=== PATIENT | female | born 1935 | race Hispanic/Latino ===

== ENCOUNTER 2021-02-13 18:46 | Emergency (ER) | payer MEDICARE ==
[~2021-02-13] VITALS: Ht 154.9 cm; Wt 68.5 kg
[~2021-02-13 18:46] MED LIST: ATOR10 PO; CIPR-278 PO; CLOP75TA32 PO; GLIM4TAB36 PO; LEVO25TA54 PO; LOSA100T58 PO; METF-446 PO; METR-172 PO; VIT1TABL75 PO
[2021-02-13 18:51] VITALS: BP 162/76
[2021-02-13] MEDS ORDERED: ACETAMINOPHEN 500 MG TABLET PO ONE (19:00)
[2021-02-13 19:27] LABS: BASOPHILS % (AUTO) 0.5 % (0.0-5.0); EOSINOPHILS % (AUTO) 2.9 % (0.0-8.0); HEMATOCRIT 31.7 % (36-48); LYMPHOCYTES % (AUTO) 31.3 % (21.0-51.0); MEAN CORPUSCULAR HEMOGLOBIN 27.6 pg (27.0-33.0); MEAN CORPUSCULAR HGB CONC 32.2 g/dL (32.0-36.0); MEAN CORPUSCULAR VOLUME 85.7 fL (79-99); MONOCYTES % (AUTO) 10.2 % (3.0-13.0); NEUTROPHILS % (AUTO) 54.9 % (40.0-77.0); PLATELET COUNT (AUTO) 310 K/uL (130-400); RED CELL DISTRIBUTION WIDTH 14.1 % (11.0-15.5); WHITE BLOOD COUNT (AUTO) 9.8 K/uL (4.8-10.8)
[2021-02-13 19:28] VITALS: BP 151/72
[2021-02-13] MEDS ORDERED: FERR325T29 PO (19:36)
[2021-02-13] MEDS ORDERED: SITA100T12 PO (19:36)
[2021-02-13] MEDS ORDERED: CHOL500050 PO (19:36)
[2021-02-13] MEDS ORDERED: FOLI0.8T22 PO (19:36)
[2021-02-13] MEDS ORDERED: AMLO-257 PO (19:37)
[2021-02-13 19:44] LABS: CREATININE 1.2 mg/dL (0.5-1.5); INR 1.09 (0.85-1.15); POTASSIUM 4.2 mmol/L (3.5-5.1); PROTHROMBIN TIME 11.8 SEC (9.6-11.6)
[2021-02-13 19:54] LABS: ALBUMIN 3.6 g/dL (3.5-5.0); BILIRUBIN,TOTAL 0.3 mg/dL (0.2-1.0); TOTAL PROTEIN, SERUM 7.6 g/dL (6.0-8.3)
[2021-02-13 19:57] VITALS: BP 152/73
[2021-02-13] MEDS ORDERED: ACET-2247 PO (20:03)
== END 2021-02-13 20:19 | disposition home or self-care (01) ==
LOC: EDH 18:46
DX: S00.83XA Contusion of other part of head, initial encounter (principal); S80.02XA Contusion of left knee, initial encounter; S80.01XA Contusion of right knee, initial encounter; W01.0XXA Fall on same level from slipping, tripping and stumbling without subsequent striking against object, initial encounter; Y93.01 Activity, walking, marching and hiking; Y92.480 Sidewalk as the place of occurrence of the external cause; Y99.8 Other external cause status
CPT/HCPCS: 36415; 70450; 70486; 71045; 72125; 73562; 80053; 84484; 85025; 85610; 85730; 93005

== ENCOUNTER 2022-05-08 16:32 | Observation (INO) | payer MEDICARE ==
[~2022-05-08] VITALS: Ht 152.4 cm; Wt 60.1 kg
[~2022-05-08 16:32] MED LIST changes: +ACET-2247 PO; +AMLO-257 PO; +CHOL500050 PO; -CIPR-278 PO; +FERR325T29 PO; +FOLI0.8T22 PO; -METR-172 PO; +SITA100T12 PO
[2022-05-08 20:19] LABS: BASOPHILS % (AUTO) 0.7 % (0.0-5.0); EOSINOPHILS % (AUTO) 1.9 % (0.0-8.0); HEMATOCRIT 32.5 % (36-48); LYMPHOCYTES % (AUTO) 27.3 % (21.0-51.0); MEAN CORPUSCULAR HEMOGLOBIN 27.7 pg (27.0-33.0); MEAN CORPUSCULAR HGB CONC 32.9 g/dL (32.0-36.0); MEAN CORPUSCULAR VOLUME 84.2 fL (79-99); MONOCYTES % (AUTO) 7.9 % (3.0-13.0); NEUTROPHILS % (AUTO) 61.8 % (40.0-77.0); PLATELET COUNT (AUTO) 327 K/uL (130-400); RED BLOOD CELL COUNT(AUTO) 3.86 MIL/uL (4.00-5.50); WHITE BLOOD COUNT (AUTO) 10.2 K/uL (4.8-10.8)
[2022-05-08 20:29] LABS: CREATININE 1.2 mg/dL (0.5-1.5); POTASSIUM 4.4 mmol/L (3.5-5.1)
[2022-05-08 20:34] LABS: ALBUMIN 3.9 g/dL (3.5-5.0); TOTAL PROTEIN, SERUM 8.1 g/dL (6.0-8.3)
[2022-05-08] MEDS ORDERED: 0.9%NACL 1000ML 1,000 ML IV SCH (21:00)
[2022-05-08] MEDS ORDERED: VITAMIN-C (21:08)
[2022-05-08] MEDS ORDERED: INSU100I3 SQ (21:08)
[2022-05-08] MEDS ORDERED: FEXO180T94 PO (21:08)
[2022-05-08] MEDS ORDERED: LEVO25CA4 PO (21:08)
[2022-05-08 21:23] LABS: APPEARANCE,URINE CLEAR (CLEAR); BILIRUBIN,URINE NEGATIVE (NEGATIVE); COLOR,URINE COLORLESS (YELLOW); GLUCOSE, URINE (UA) NEGATIVE (NEGATIVE); KETONES,URINE NEGATIVE (NEGATIVE); LEUKOCYTE ESTERASE ,URINE 250 Leu/uL (NEGATIVE); NITRATE,URINE NEGATIVE (NEGATIVE); OCCULT BLOOD,URINE NEGATIVE (NEGATIVE); PROTEIN,URINE NEGATIVE (NEGATIVE); UROBILINOGEN,URINE 0.2 mg/dL (0.2-1.0)
[2022-05-08 21:25] LABS: BACTERIA,URINE RARE /HPF (None Seen); MUCUS,URINE RARE LPF (None Seen); RBC,URINE 0-1 /HPF (0-1)
[2022-05-08] MEDS: ACETAMINOPHEN 325 MG TAB PO PRN (23:23)
[2022-05-09 00:43] VITALS: BP 160/61
[2022-05-09 03:30] VITALS: BP 125/61
[2022-05-09] MEDS: ACETAMINOPHEN 325 MG TAB PO PRN (06:09)
[2022-05-09 08:00] VITALS: BP 138/60
[2022-05-09] MEDS ORDERED: GADOTERATE MEGLUMINE 5 MMOL/10 ML VIAL IV ONE (10:31)
[2022-05-09 12:00] VITALS: BP 136/57
== END 2022-05-09 16:30 | disposition home or self-care (01) ==
LOC: EDH 16:32 → EDHIP 20:20 → 3DH 05-09 00:23
PROVIDERS: ADMIT Internal Medicine Hematology & Oncology; ATTEND Internal Medicine Hematology & Oncology
DX: R51.9 Headache, unspecified (principal); E86.0 Dehydration; Z20.822 Contact with and (suspected) exposure to COVID-19; E03.9 Hypothyroidism, unspecified; Z79.899 Other long term (current) drug therapy
CPT/HCPCS: 96360; 96361 ×2; 99284; 80053; 85025; 87077; 87088; 87186; 87804 ×2; 82948; 81001; 36415; 87635; 70553; G0378 ×20; J7030; A9575; G0379

== ENCOUNTER 2024-06-30 22:03 | Emergency (ER) | payer MEDICARE ==
[~2024-06-30] VITALS: Ht 154.9 cm; Wt 66.2 kg
[~2024-06-30 22:03] MED LIST changes: +FEXO180T94 PO; +INSU100I3 SQ; +LEVO25CA4 PO; -LOSA100T58 PO; +LOSA100T59 PO; +VITAMIN-C
--- NOTE | 2024-06-30 22:32 | EKG ---
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
--- NOTE | 2024-06-30 22:50 | ERN ---
ED Note History of Present Illness Stated Complaint: HIGH SUGAR LEVELS Chief Complaint: Hyperglycemia Time Seen by MD: 22:10 Dictation: This is an 88-year-old female who presented to the emergency room stating that her sugars have been running high. She also started feeling numbness and tingling in her lower extremities. Hence daughter at bedside. Apparently patient received Solu-Medrol 125 mg for chronic hip pain which was worsening around 11:30 a.m.. She is very diligent with her medications. No history of any fevers chills rigors no burning micturition dysuria hematuria no cough sputum or hemoptysis. patient is only taking Tylenol at this time PRN for pain. As she is afraid of any worsening renal function. She sees Dr. Sánchez for CKD. The daughter indicated that her sugar in the evening was over 500 and after she took her insulin dosing it was still around 455 Temperature 97.7 pulse 104 respirations 20 blood pressure 179/90 with a pulse oximetry of 94%. Chronic medical problems include diabetes mellitus, hypertension, hypercholesterolemia, osteoarthritis and hypothyroidism Allergies: Coded Allergies: ceftriaxone (Unverified Allergy, Intermediate, HIVES, 07/13/17) No Known Drug Allergies (Verified Allergy, Unknown, 07/13/17) Home Meds Active Scripts Tramadol Hcl (Tramadol HCl) 50 Mg Tablet, 25 MG PO QID for pain, #16 TAB 0 Refills Prov:CATE YADAV MD 07/01/24 Acetaminophen (Tylenol) 325 Mg Tablet, 650 MG PO QID, #50 TAB Prov:FRANCES ASHLEY 02/13/21 Reported Medications Insulin Aspart (Novolog Flexpen) 100 Unit/1 Ml Insuln.pen, 8 UNIT SQ AM, SYRINGE 05/08/22 Levothyroxine Sodium (Levothyroxine) 25 Mcg Capsule, 25 MCG PO DAILY, CAP 05/08/22 [Vitamin-C] No Conflict Check, 500 MG DAILY 05/08/22 Fexofenadine HCl (Shelia Allergy) 180 Mg Tablet, 180 MG PO DAILY for 30 Days, T AB 05/08/22 Amlodipine Besylate (Amlodipine Besylate) 5 Mg Tablet, 5 MG PO DAILY, TAB 02/13/21 Cholecalciferol (Vitamin D3) (Vitamin D3) 1,250 Mcg Capsule, 1250 MCG PO DAILY, CAP 02/13/21 Sitagliptin Phosphate (Januvia) 100 Mg Tablet, 100 MG PO DAILY, TAB 02/13/21 Folic Acid/Vitamin B Comp W-C (Norah-Bakari Tablet) 0.8 Mg Tablet, 0.8 MG PO DAILY, TAB 02/13/21 Ferrous Sulfate (Ferosul) 325 Mg Tablet, 325 MG PO DAILY, TAB 02/13/21 Vit B Cmplx 3/FA/Vit C/Biotin (Vol-Care Rx Tablet) 1 Each Tablet, 1 EACH PO DAILY, TAB 07/13/17 Clopidogrel Bisulfate (Clopidogrel) 75 Mg Tablet, 75 MG PO DAILY, TAB 07/13/17 Losartan Potassium (Losartan Potassium) 100 Mg Tablet, 100 MG PO DAILY, TAB 07/13/17 Metformin HCl (Metformin HCl) 1,000 Mg Tablet, 1000 MG PO BID, TAB 07/13/17 Glimepiride (Glimepiride) 4 Mg Tablet, 4 MG PO BID, TAB 07/13/17 Atorvastatin Calcium (LIPITOR) 20 Mg Tab, 40 MG PO HS, TAB 07/13/17 Levothyroxine Sodium (Levothyroxine Sodium) 25 Mcg Tablet, 25 MCG PO ACBKFST, TAB 07/13/17 Past Medical History Past Medical History: Arthritis, Diabetes-Type II, High Cholesterol, Hypertension, Hypothyroid Surgical History: Hysterectomy Family History: Negative Social History: Negative History: Not Applicable RN Note Reviewed/Agreed w/PFSH: Yes Review of System Dictation Constitutional: Negative for fever,chills, and weight loss Eyes: Negative for injury, pain,redness, and discharge ENT: Negative for injury,pain or swelling Cardiovascular: Negative for chest pain, palpitations, and edema Respiratory: Negative for shortness of breath, cough, and wheezing, Abdomen/GI: Negative for abdominal pain, nausea, vomiting, diarrhea, and constipation Back: Negative for injury and pain : Negative for injury, bleeding and discharge MS/Extremity: Negative for injury and deformity chronic left hip pain Skin: Negative for rash, and discoloration Neuro: Negative for headache, weakness, numbness, tingling, and seizure Psych: Negative for suicide ideation, homicidal ideation, and hallucinations Initial Vital Sign VS Vital Signs Date Time Temp Pulse Resp B/P (MAP) Pulse Ox O2 Delivery O2 Flow Rate FiO2 06/30/24 22:30 97.7 104 20 179/90 94 Room Air 06/30/24 23:30 0 21 Physical Exam Dictation General: awake, alert, NAD Head/Face: Normocephalic, atraumatic Eyes: PERRL, EOMI, vision at baseline ENT: oral cavity clear, TMs clear, no signs of infection Neck: Trachea midline, supple, no nuchal rigidity Cardiovascular: RRR, normal S1/S2, No MRGs, no JVD Respiratory: CTAB, no respiratory distress, No rales or wheezes Abdomen: Soft, non-tender, non-distended, normal bowel sounds, no guarding or rebound. Skin: Warm, dry, normal turgor, no rash MS/Extremity: Pulses equal, no cyanosis, neurovascular intact, FROM Neuro: COAx4, GCS 15, strength 5/5, CN 2-12 intact, normal cerebellar exam, normal gait, Psych: Normal behavior, mood, and affect normal Extremities-trace edema without any palpable cords, Homans sign is negative Results (Laboratory/Radiology) Laboratory/Radiology Laboratory Tests Test 06/30/24 22:35 06/30/24 22:53 07/01/24 00:14 07/01/24 00:23 Whole Blood Glucose 402 MG/DL (70-110) *H 272 MG/DL (70-110) H Bedside Glucose Comment Notified Nurse White Blood Count 9.1 K/uL (4.8-10.8) Red Blood Count 3.74 MIL/uL (4.00-5.50) L Hemoglobin 10.3 g/dL (12.0-16.0) L Hematocrit 32.2 % (36-48) L Mean Corpuscular Volume 86.1 fL (79-99) Mean Corpuscular Hemoglobin 27.5 pg (27.0-33.0) Mean Corpuscular Hemoglobin Concent 32.0 g/dL (32.0-36.0) Red Cell Distribution Width 14.1 % (11.0-15.5) Platelet Count 315 K/uL (130-400) Mean Platelet Volume 10.4 fL (7.5-10.5) Immature Granulocyte % (Auto) 0.6 % (0-1) Neutrophils (%) (Auto) 87.4 % (40.0-77.0) H Lymphocytes (%) (Auto) 11.3 % (21.0-51.0) L Monocytes (%) (Auto) 0.6 % (3.0-13.0) L Eosinophils (%) (Auto) 0.0 % (0.0-8.0) Basophils (%) (Auto) 0.1 % (0.0-5.0) Neutrophils # (Auto) 7.9 K/uL (1.8-7.7) H Lymphocytes # (Auto) 1.0 K/uL (1.0-4.8) Monocytes # (Auto) 0.1 K/uL (0.1-1.0) Eosinophils # (Auto) 0.00 K/uL (0.00-0.70) Basophils # (Auto) 0.01 K/uL (0.00-0.20) Absolute Immature Granulocyte (auto 0.05 K/uL (0-1) Nucleated Red Blood Cells 0.0 % (0.0-0.19) Sodium Level 134 mmol/L (136-145) L Potassium Level 4.3 mmol/L (3.5-5.1) Chloride Level 99 mmol/L (101-111) L Carbon Dioxide Level 21 mmol/L (21-32) Blood Urea Nitrogen 23 mg/dL (7-18) H Creatinine 1.4 mg/dL (0.5-1.0) H Glomerular Filtration Rate Calc 36 mL/min (>90) Random Glucose 403 mg/dL (70-105) *H Total Calcium 9.0 mg/dL (8.5-10.1) Urine Color COLORLESS (YELLOW) Urine Appearance CLEAR (CLEAR) Urine pH 6.0 (5.0-8.0) Urine Specific [place] 1.010 (1.001-1.031) Urine Protein NEGATIVE mg/dL (NEGATIVE) Urine Glucose (UA) >=1000 mg/dL (NEGATIVE) H Urine Ketones NEGATIVE mg/dL (NEGATIVE) Urine Occult Blood NEGATIVE (NEGATIVE) Urine Nitrate NEGATIVE (NEGATIVE) Urine Bilirubin NEGATIVE mg/dL (NEGATIVE) Urine Urobilinogen 0.2 mg/dL (0.2-1.0) Urine Leukocyte Esterase NEGATIVE Chris/uL Urine RBC 0-1 /HPF (0-1) Urine WBC 2-5 /HPF (0-1) H Urine Bacteria RARE /HPF (None Seen) Labs Reviewed?: Yes ED Course ED Course Orders Procedure Category Date Status Time Cbc With Differential LAB 06/30/24 Complete 22:10 Basic Metabolic Panel LAB 06/30/24 Complete 22:10 12 Lead Ekg Tracing- EKG 06/30/24 Complete Technical 22:10 0.9%Nacl 1000ml (Ns PHA 06/30/24 Complete 1000ml) 23:30 Insulin Regular, PHA 07/01/24 Complete Human 3ml (Humulin R 00:00 Tramadol PHA 07/01/24 Complete Hcl/Acetaminophen 00:30 Random Accucheck At CPOE 07/01/24 Transmitted Bedside 00:03 Urinalysis LAB 07/01/24 Complete W/Microscopic 00:14 Current Medications Medications (Trade) Dose Ordered Sig/Iam Route PRN Reason Start Time Stop Time Status Last Admin Dose Admin Insulin Human Regular (humuLIN R 100 UNIT/ML 3ML) 15 unit ONCE ONCE IV 07/01/24 00:00 07/01/24 00:01 DC 06/30/24 23:45 Sodium Chloride 1,000 ml @ 0 mls/hr ONCE ONCE IV 06/30/24 23:30 06/30/24 23:31 DC 06/30/24 23:18 Tramadol/ Acetaminophen (UltraCET) 1 tab ONCE ONCE PO 07/01/24 00:30 07/01/24 00:31 DC 07/01/24 00:21 Vital Signs Date Time Temp Pulse Resp B/P (MAP) Pulse Ox O2 Delivery O2 Flow Rate FiO2 07/01/24 01:00 97.7 84 18 136/71 94 Room Air* 0 21 07/01/24 00:00 97.7 84 18 144/75 94 Room Air* 0 21 06/30/24 23:30 84 18 148/77 97 Room Air* 0 21 06/30/24 22:30 97.7 104 20 179/90 94 Room Air We will perform diagnostic labs, advanced imaging and administer medications according to the patient's complaint. Once the results are available, will review and personally interpreted the labs to rule out any acute life- threatening emergency the trach require immediate intervention and treatment. I will then re-evaluate the patient after treatment and diagnostic exams have return to determine whether the patient requires any further testing, can safely be discharged home or need further admission to hospital for additional treatment and evaluation. Labs reviewed CBC showed a white count of 9.1 hemoglobin 10.3. BNP 7 showed a sodium of 134 BUN and creatinine are 23 and 1.4. IV fluids and optimize the glycemic control. 12:07 a.m. I had a long discussion with patient and daughter that her hyper glycemia may have been triggered by IM steroids. There is no fever leukocytosis at this time Patient is insisting on going home and sleeping in her bed as she has activities planned with the grandchildren. I recommended that for severe hip pain she could try an extremely low-dose tramadol for pain relief and patient is willing to try DC home to follow up with her primary care physician Her repeat sugar was 252 and she admits to significant improvement with the tramadol Medical Decision Making MDM MDM: Differential diagnosis: Hyperglycemia and uncontrolled diabetes likely preci pitated by steroids, possible UTI. Rationale: Tests considered and ordered secondary to shared decision making include: Previous outside records reviewed: Old ER visits. Risk of complication and/or morbidity or mortality of patient management: None Medications-Per medication reconciliation Need for hospitalization: Patient does not meet criteria for hospitalization. Need for emergency major/minor surgery: No There are no social concerns with this patient. Prescription drug management Prescriptions will include symptomatic care Patient's prior external medical records from other ER visits were reviewed by me as indicated. Prior testing and results from previous visits were reviewed. Prior tests were taken into account with medical decision making and resource utilization, independent historian/historians were used to obtain complete medical history. I independently interpreted the test that were performed, results were reviewed by me and considered findings on radiology if ordered. Medical management and examination interpretation discussions were had by me with other qualified healthcare professionals as indicated for the patient's care. Problem List Problem List: (1) Uncontrolled diabetes mellitus with hyperglycemia, with long-term current use of insulin (2) Chronic kidney disease (CKD) (3) Chronic hip pain DX & DISP Disposition: Discharge Departure Impression: Primary Impression: Uncontrolled diabetes mellitus with hyperglycemia, with long-term current use of insulin Additional Impressions: Chronic kidney disease (CKD), Chronic hip pain Condition: Stable Scripts Tramadol Hcl (Tramadol HCl) 50 Mg Tablet 25 MG PO QID for pain, #16 TAB 0 Refills Prov: CATE YADAV MD 07/01/24 Additional Instructions: Patient and the caregiver have been informed of all the diagnostic tests and the imaging conducted during the today's visit to the emergency room and has verbalized understanding of the results I have personally reviewed and interpreted all diagnostic exams performed here in the ER today as well as the vital signs documented by the nursing staff. The patient is now being discharged to home and should follow up with the primary care physician or the specialist as directed by the ER staff. Follow-up with primary care provider in 1 to 2 days. Take medications as directed here in the emergency room. Okay to continue home medications unless otherwise discussed during your visit in the emergency room today. Return to your nearest emergency room if symptoms worsen or if there is no improvement. Call [phone] if you need immediate assistance. Take Tylenol or Motrin [id number] as needed and if no contraindications are present. Increase oral hydration. A wound culture or urine culture was ordered here in the emergency room department please follow-up with primary care provider and advise them to get repeat ports from our facility. If you had any Tsephen wrap/splints that were applied here, please do not remove them until you see your primary care or specialty. Referrals: SABRINA WHITE MD (PCP) CATE YADAV MD Jun 30, 2024 22:50
--- NOTE | 2024-06-30 22:56 | NUR ---
Given Solumedrol [address] Fay office at 11:30 am
[2024-06-30 22:59] LABS: BASOPHILS # (AUTO) 0.01 K/uL (0.00-0.20); BASOPHILS % (AUTO) 0.1 % (0.0-5.0); HEMATOCRIT 32.2 % (36-48); IMMATURE GRANULOCYTE ABSOLUTE 0.05 K/uL (0-1); LYMPHOCYTES % (AUTO) 11.3 % (21.0-51.0); MEAN CORPUSCULAR HEMOGLOBIN 27.5 pg (27.0-33.0); MEAN CORPUSCULAR VOLUME 86.1 fL (79-99); MONOCYTES # (AUTO) 0.1 K/uL (0.1-1.0); MONOCYTES % (AUTO) 0.6 % (3.0-13.0); NEUTROPHILS # (AUTO) 7.9 K/uL (1.8-7.7); NEUTROPHILS % (AUTO) 87.4 % (40.0-77.0); PLATELET COUNT (AUTO) 315 K/uL (130-400); RED BLOOD CELL COUNT(AUTO) 3.74 MIL/uL (4.00-5.50); RED CELL DISTRIBUTION WIDTH 14.1 % (11.0-15.5); WHITE BLOOD COUNT (AUTO) 9.1 K/uL (4.8-10.8)
[2024-06-30 23:08] LABS: CREATININE 1.4 mg/dL (0.5-1.0); POTASSIUM 4.3 mmol/L (3.5-5.1)
[2024-06-30] MEDS: 0.9%NACL 1000ML 1,000 ML IV ONE (23:18)
[2024-06-30] MEDS: INSULIN humuLIN R 100 UNIT/ML 3ML IV ONE (23:45)
[2024-07-01] MEDS ORDERED: TRAM50TA4 PO (00:14)
[2024-07-01] MEDS: traMADol /APAP 37.5MG/325MG TAB PO ONE (00:21)
[2024-07-01 00:48] LABS: APPEARANCE,URINE CLEAR (CLEAR); BACTERIA,URINE RARE /HPF (None Seen); BILIRUBIN,URINE NEGATIVE (NEGATIVE); COLOR,URINE COLORLESS (YELLOW); GLUCOSE, URINE (UA) >=1000 mg/dL (NEGATIVE); KETONES,URINE NEGATIVE (NEGATIVE); LEUKOCYTE ESTERASE ,URINE NEGATIVE Leu/uL (NEGATIVE); NITRATE,URINE NEGATIVE (NEGATIVE); OCCULT BLOOD,URINE NEGATIVE (NEGATIVE); PROTEIN,URINE NEGATIVE (NEGATIVE); RBC,URINE 0-1 /HPF (0-1); UROBILINOGEN,URINE 0.2 mg/dL (0.2-1.0)
[2024-07-01 01:00] VITALS: BP 136/71; PULSE 84; RESP 18; TEMP 97.7; O2SAT 94
== END 2024-07-01 01:16 | disposition home or self-care (01) ==
LOC: EDH 22:03
DX: E11.65 Type 2 diabetes mellitus with hyperglycemia (principal); E11.22 Type 2 diabetes mellitus with diabetic chronic kidney disease; I12.9 Hypertensive chronic kidney disease with stage 1 through stage 4 chronic kidney disease, or unspecified chronic kidney disease; N18.9 Chronic kidney disease, unspecified; Z79.4 Long term (current) use of insulin; E03.9 Hypothyroidism, unspecified; E78.00 Pure hypercholesterolemia, unspecified; G89.29 Other chronic pain; M25.552 Pain in left hip; M19.90 Unspecified osteoarthritis, unspecified site; Z79.02 Long term (current) use of antithrombotics/antiplatelets; Z79.84 Long term (current) use of oral hypoglycemic drugs; Z79.890 Hormone replacement therapy; Z79.899 Other long term (current) drug therapy; Z88.1 Allergy status to other antibiotic agents; Z90.710 Acquired absence of both cervix and uterus
CPT/HCPCS: 99284; 96374; 96361; 80048; 85025; 82948 ×2; 81001; 36415; 93005; J1815; J7030